=== PATIENT | female | born 1975 | race African-American/Black ===

== ENCOUNTER 2019-12-20 11:35 | Emergency (ER) | payer OTHER ==
[~2019-12-20] VITALS: Ht 165.1 cm; Wt 104.5 kg
[2019-12-20 13:00] VITALS: BP 120/75
--- NOTE | 2019-12-20 13:00 | RAD ---
CT brain without contrast. HISTORY: Facial numbness this a.m. CT scan of the brain was done without contrast. Sinuses are clear. Mastoids are normally aerated. There is no intracranial hemorrhage or subdural hematoma. There is no mass or shift of the midline. An acute CVA is not identified. IMPRESSION: 1. No intracranial hemorrhage or acute finding noted. PQRS Compliance Statement: One or more of the following individualized dose reduction techniques were utilized for this examination: 1. Automated exposure control 2. Adjustment of the mA and/or kV according to patient size 3. Use of iterative reconstruction technique Electronically signed by: Nathan Mullins MD (12/20/2019 12:57 PM) [id number]
--- NOTE | 2019-12-20 13:31 | PHYS DOC ---
Past Medical History Past Medical History: Asthma, Depression, Hypertension Past Surgical History: No Surgical History Smoking Status: Never Smoker Alcohol Use: Occasionally General Adult EDM: Chief Complaint: NEURO SYMPTOMS/DEFICITS HPI: HPI: Patient is a 43-year-old female who presented to ER today for headache, feeling like her face does not look normal when she woke up this morning. Patient has been having a migraine headache for 3 days. Patient has history of migraine headache, denies any fever, no nausea vomiting, no neck pain. Patient denies any weakness or numbness in her extremities, no slurred speech. Patient denies any chest pain, no abdominal pain, no cough or fever. Patient states she lives alone also so she wanted to come in to check make sure she is okay. Review of Systems: Review of Systems: Constitutional: Denies fever or chills. [] Eyes: Denies change in visual acuity. [] HENT: Denies nasal congestion or sore throat. [] Respiratory: Denies cough or shortness of breath. [] Cardiovascular: Denies chest pain or edema. [] GI: Denies abdominal pain, nausea, vomiting, bloody stools or diarrhea. [] : Denies dysuria. [] Musculoskeletal: Denies back pain or joint pain. [] Integument: Denies rash. [] Neurologic: Positive for headache, no slurred speech, no weakness anywhere. Endocrine: Denies polyuria or polydipsia. [] Lymphatic: Denies swollen glands. [] Psychiatric: Denies depression or anxiety. [] Heart Score: Risk Factors: Risk Factors: DM, Current or recent (<one month) smoker, HTN, HLP, family history of CAD, obesity. Risk Scores: Score 0 - 3: 2.5% MACE over next 6 weeks - Discharge Home Score 4 - 6: 20.3% MACE over next 6 weeks - Admit for Clinical Observation Score 7 - 10: 72.7% MACE over next 6 weeks - Early Invasive Strategies Allergies: Allergies: Allergies Coded Allergies Type Severity Reaction Last Updated Verified Penicillins Allergy Unknown 12/20/19 Yes Physical Exam: PE: Constitutional: Well developed, well nourished, no acute distress, non-toxic appearance. [] HENT: Normocephalic, atraumatic, bilateral external ears normal, oropharynx moist, no oral exudates, nose normal. [] Eyes: PERRLA, EOMI, conjunctiva normal, no discharge. [] Neck: Normal range of motion, no tenderness, supple, no stridor. [] Cardiovascular:Heart rate regular rhythm, no murmur [] Lungs & Thorax: Bilateral breath sounds clear to auscultation [] Abdomen: Bowel sounds normal, soft, no tenderness, no masses, no pulsatile masses. [] Skin: Warm, dry, no erythema, no rash. [] Back: No tenderness, no CVA tenderness. [] Extremities: No tenderness, no cyanosis, no clubbing, ROM intact, no edema. [] Neurologic: Alert and oriented X 3, normal motor function, normal sensory function, no focal deficits noted. NO FACIAL DROOP, MOVED ALL EXTREMITIES WITHOUT ANY PROBLEM. NORMAL SPEECH. Psychologic: Affect normal, judgement normal, mood normal. [] Current Patient Data: Vital Signs: Vital Signs Date Time Temp Pulse Resp B/P (MAP) Pulse Ox O2 Delivery O2 Flow Rate FiO2 12/20/19 12:01 99.4 106 16 146/82 (103) 98 Room Air 99.4 EKG: EKG: [] Radiology/Procedures: Radiology/Procedures: [][facility] [address] [place], [place] [id number] IMAGING REPORT Signed PATIENT: JOHNNY PRYOR ACCOUNT: [id number] : 1975 LOCATION: ER AGE: 44 SEX: F EXAM STATUS: REG ER ORD. PHYSICIAN: OPHELIA BEATTY DO REASON: FACIAL NUMBNESS WHEN WOKE UP THIS AM PROCEDURE: CT HEAD WO CONTRAST CT brain without contrast. HISTORY: Facial numbness this a.m. CT scan of the brain was done without contrast. Sinuses are clear. Mastoids are normally aerated. There is no intracranial hemorrhage or subdural hematoma. There is no mass or shift of the midline. An acute CVA is not identified. IMPRESSION: 1. No intracranial hemorrhage or acute finding noted. PQRS Compliance Statement: One or more of the following individualized dose reduction techniques were utilized for this examination: 1. Automated exposure control 2. Adjustment of the mA and/or kV according to patient size 3. Use of iterative reconstruction technique Electronically signed by: Nathan Santamaria MD (12/20/2019 12:57 PM) [id number] DICTATED and SIGNED BY: NATHAN SANTAMARIA MD DATE: 12/20/19 1257 Course & Med Decision Making: Course & Med Decision Making Pertinent Labs and Imaging studies reviewed. (See chart for details) Patient is a 44-year-old female who was evaluated in the ED due to having headache, CT scan of her head was normal. Patient felt okay now, she will be discharged home, follow-up with her family doctor as needed. Patient did not have any focal neurological deficits. It is unlikely that she had an acute stroke symptoms. Dragon Disclaimer: Dragon Disclaimer: This electronic medical record was generated, in whole or in part, using a voice recognition dictation system. Departure Departure Impression: Primary Impression: Migraine headache Disposition: 01 HOME, SELF-CARE Condition: STABLE Referrals: NON,STAFF (PCP) follow up with your doctor as needed Patient Instructions: General Headache Without Cause OPHELIA BEATTY DO December 20, 2019 13:31
== END 2019-12-20 13:48 | disposition home or self-care (01) ==
LOC: ER 11:35
DX: G43.909 Migraine, unspecified, not intractable, without status migrainosus (principal); J45.909 Unspecified asthma, uncomplicated; F32.9 Major depressive disorder, single episode, unspecified; I10 Essential (primary) hypertension; Z88.0 Allergy status to penicillin
CPT/HCPCS: 70450; 99284

== ENCOUNTER → 2021-12-01 | Outpatient (CLI) | payer OTHER ==
--- NOTE | 2021-12-02 11:48 | KCIC ---
US PELVIS COMPLETE History: Reason: Fibroid Uterus; Dysmenorrhea; Enlarged Uterus / Spl. Instructions: / History: Comparison: None Technique: Grayscale and color Doppler imaging of the pelvis was performed using transabdominal techn ique. Findings: The uterus measures 16.3 x 12.4 x 4.8 cm. Multiple heterogeneous uterine lesions. Largest hemorrhage is lesion on the right measures 8.0 x 8.5 x 6.6 cm. Largest mid uterus region measures 4.0 x 3.6 x 3 .9 cm. The endometrial stripe measures 6 mm. Right ovary not identified due to positioning and overlying structures. Left ovary measures 2.8 x 2.5 x 2.1 cm. IMPRESSION: 1. Enlarged uterus with multiple heterogeneous masses, likely fibroids. Electronically signed by: Ajay Britt DO (12/02/2021 11:45 AM) [id number]
== END ==
LOC: KCIC US 14:45
PROVIDERS: ATTEND Obstetrics & Gynecology
DX: N85.2 Hypertrophy of uterus (principal); N85.8 Other specified noninflammatory disorders of uterus; N94.6 Dysmenorrhea, unspecified
CPT/HCPCS: 76856